=== PATIENT | male | born 1985 | race African-American/Black ===

== ENCOUNTER 2023-10-03 18:03 | Emergency (ER) | payer OTHER ==
[~2023-10-03] VITALS: Ht 175.3 cm; Wt 61.0 kg
[2023-10-03 18:05] VITALS: O2SAT 99
[2023-10-03 19:23] LABS: HEMATOCRIT. 44.9 % (42.0-52.0); MEAN CORPUSCULAR HEMOGLOBIN 30.3 pg (28.0-32.0); MEAN CORPUSCULAR HGB CONC 33.5 g/dL (31.0-37.0); MEAN CORPUSCULAR VOLUME 90.7 fL (80.0-94.0); MEAN PLATELET VOLUME 8.8 fl (7.4-10.4); PLATELET 171 x1000/uL (130-400); RED BLOOD CELL COUNT 4.96 mill/uL (4.7-6.1); RED CELL DISTRIBUTION WIDTH 13.9 % (11.6-14.6); WHITE BLOOD COUNT 3.8 x1000/uL (4.5-11.0)
[2023-10-03 19:24] LABS: CARBON DIOXIDE 31 mEq/L (21-32); CHLORIDE 105 mEq/L (98-107); POTASSIUM 4.2 mEq/L (3.5-5.1); SODIUM 137 mEq/L (136-145)
[2023-10-03 19:25] LABS: CALCIUM 9.7 mg/dL (8.7-10.4)
[2023-10-03 19:28] LABS: DIFFERENTIAL COMMENT 1
[2023-10-03 19:29] LABS: CREATININE 1.1 mg/dL (0.6-1.3)
[2023-10-03 19:30] LABS: D-DIMER 0.83 mg/L FEU (<0.50); GLUCOSE 91 mg/dL (70-105); PROTHROMBIN TIME 11.5 sec (9.6-11.0); UREA NITROGEN BLOOD 7 mg/dL (9-23)
[2023-10-03 19:31] LABS: ALANINE AMINOTRANSFERASE 11 IU/L (10-49); ALBUMIN 5.1 g/dL (3.2-4.8); ASPARTATE AMINOTRANSFERASE 18 IU/L (<34); C REACTIVE PROTEIN QUANT 3.6 mg/L (0.0-3.0)
[2023-10-03 19:32] LABS: BILIRUBIN DIRECT 0.1 mg/dL (<=3.0); BILIRUBIN TOTAL 0.3 mg/dL (0.1-1.0); PROTEIN TOTAL 7.4 g/dL (6.0-8.3)
[2023-10-03 19:52] LABS: PLATELET ESTIMATE NORMAL
[2023-10-03 20:10] LABS: CLARITY URINE CLEAR (CLEAR); COLOR URINE YELLOW (YELLOW); GLUCOSE URINE NEGATIVE (NEGATIVE); KETONES URINE TRACE (NEGATIVE); LEUKOCYTE ESTERASE URINE NEGATIVE (NEGATIVE); NITRITE URINE NEGATIVE (NEGATIVE); OCCULT BLOOD URINE 2+ (NEGATIVE); PH URINE 6.5 (4.5-8.0); PROTEIN URINE TRACE (NEGATIVE); SPECIFIC GRAVITY URINE 1.026 (1.005-1.030)
[2023-10-03 20:32] LABS: BACTERIA URINE NONE SEEN; RBC URINE 15-25 /hpf (0-2); SQUAMOUS EPITHELIAL CELL URINE RARE /lpf (RARE/1+)
[2023-10-03 20:33] LABS: MUCUS URINE 1+ /lpf (NONE/TRACE); WBC URINE 0-2 /hpf (0-2)
[2023-10-03 21:20] VITALS: BP 111/60; PULSE 74; RESP 24; TEMP 38.72532; O2SAT 98
[2023-10-03] MEDS: METHYLPREDNISOLONE SOD SUCC 125MG/2ML (ACT-O-VIAL) IV ONE (21:35)
== END 2023-10-03 21:42 | disposition short-term general hospital (02) ==
LOC: ER 18:03
DX: D69.2 Other nonthrombocytopenic purpura (principal); R51.9 Headache, unspecified; R50.9 Fever, unspecified; R06.02 Shortness of breath
CPT/HCPCS: 99285; 80076; 80048; 81003; 83690; 86140; 85025; 85379; 85384; 85610; 85651; 36415; 93005; J2919